=== PATIENT | male | born 1975 | race Caucasian/White ===

== ENCOUNTER 2023-03-26 17:40 | Emergency (ER) | payer MEDICAID ==
[~2023-03-26] VITALS: Ht 167.6 cm; Wt 92.5 kg
[2023-03-26 17:45] VITALS: TEMP 98.5
[2023-03-26] MEDS ORDERED: IV NS 0.9% 1,000 ML BAG IV ONE (18:00)
[2023-03-26] MEDS ORDERED: ONDANSETRON HCL/PF 4 MG/2 ML VIAL IVP ONE (18:00)
[2023-03-26] MEDS ORDERED: ONDANSETRON HCL/PF 4 MG/2 ML VIAL ONE (18:01)
[2023-03-26 18:10] LABS: BASOPHILS % (AUTO) 0.2 % (0.0-2.0); EOSINOPHILS % (AUTO) 0.1 % (0.0-6.0); HEMATOCRIT 43 % (39-51); HEMOGLOBIN 14.1 g/dL (13.5-17.5); LYMPHOCYTES # (AUTO) 1.4 K/uL (0.8-4.8); LYMPHOCYTES % (AUTO) 12.3 % (20.0-44.0); MEAN CORPUSCULAR HGB CONC 33 g/dl (31.0-36.0); MEAN CORPUSCULAR VOLUME 73 fL (80-96); MONOCYTES # (AUTO) 0.5 K/uL (0.1-1.30); MONOCYTES % (AUTO) 4.4 % (2.0-12.0); NEUTROPHILS # (AUTO) 9.4 K/uL (1.8-8.9); PLATELET COUNT (AUTO) 300 K/uL (150-450); RED BLOOD CELL COUNT(AUTO) 5.93 MIL/uL (4.5-6.0); WHITE BLOOD COUNT (AUTO) 11.3 K/uL (4.3-11.0)
--- NOTE | 2023-03-26 18:12 | NUR ---
Patient came in to the er c/o dizziness, nausea , 4 episodes of vomiting since 0 today. On room air, breathing evenly and unlabored. Connected to the monitor and pulse ox. Kept comfortable, will continue to monitor accordingly.
[2023-03-26 18:30] LABS: CALCIUM, SERUM 9.3 mg/dL (8.5-10.1); CREATININE 1.1 mg/dL (0.6-1.3); POTASSIUM 4.4 mmol/L (3.5-5.1)
[2023-03-26 18:38] LABS: BILIRUBIN,DIRECT 0.1 mg/dL (0.0-0.2); BILIRUBIN,TOTAL 0.4 mg/dL (0.2-1.0); TOTAL PROTEIN, SERUM 7.6 g/dL (6.4-8.2)
[2023-03-26] MEDS ORDERED: ONDA4TAB5 PO (19:16)
--- NOTE | 2023-03-26 19:27 | NUR ---
Pt AOx4, able to express his concerns. Patient states he is feeling better. Discussed discharge instructions and precautions needed. Friend at bedside, states they will be picking up medication. Discharge forms signed, pt verbalized agreement.
[2023-03-26 19:32] VITALS: BP 140/92
== END 2023-03-26 19:32 | disposition home or self-care (01) ==
LOC: ER 17:49
DX: K31.84 Gastroparesis (principal); R11.2 Nausea with vomiting, unspecified; Z79.899 Other long term (current) drug therapy
CPT/HCPCS: 99285; 96374; 76700; 96361; 93005; 85025; 80048; 83690; 80076; 36415; J2405; J7030

== ENCOUNTER 2023-05-01 12:08 | Emergency (ER) | payer MEDICAID ==
[~2023-05-01] VITALS: Ht 167.6 cm; Wt 77.1 kg
[~2023-05-01 12:08] MED LIST: ACID1TAB4 PO; AMOX-430 PO; BACI28.433 TP
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
--- NOTE | 2023-05-01 12:35 | NUR ---
DR TORREZ AT BEDSIDE FOR EVAL
--- NOTE | 2023-05-01 12:45 | NUR ---
EMT WOUND CLEANING AND DRESSING
[2023-05-01] MEDS ORDERED: SILV20CR13 TP (12:47)
[2023-05-01] MEDS ORDERED: SILVER SULFADIAZINE CREAM 25 GM TUBE ONE (12:51)
[2023-05-01] MEDS ORDERED: SILVER SULFADIAZINE CREAM 25 GM TUBE TP ONE (13:00)
--- NOTE | 2023-05-01 13:03 | NUR ---
Patient discharged to home in stable condition. Written and verbal after care instructions given. Patient verbalizes understanding of instruction.
[2023-05-01 13:04] VITALS: BP 120/96; TEMP 97.9; O2SAT 97
== END 2023-05-01 13:05 | disposition home or self-care (01) ==
LOC: ER 12:23
DX: S51.811D Laceration without foreign body of right forearm, subsequent encounter (principal); Z79.899 Other long term (current) drug therapy; W54.0XXD Bitten by dog, subsequent encounter
CPT/HCPCS: 99283; A6403

== ENCOUNTER 2023-05-20 09:43 | Emergency (ER) | payer MEDICAID ==
[~2023-05-20] VITALS: Ht 165.1 cm; Wt 76.7 kg
[~2023-05-20 09:43] MED LIST changes: +SILV20CR13 TP
[2023-05-20 10:18] VITALS: BP 139/86; TEMP 98.1; O2SAT 100
[2023-05-20] MEDS ORDERED: INDO-12 PO (10:35)
== END 2023-05-20 10:52 | disposition home or self-care (01) ==
LOC: ER 09:48
DX: M79.672 Pain in left foot (principal); M79.671 Pain in right foot; Z79.899 Other long term (current) drug therapy

== ENCOUNTER 2023-09-17 03:45 | Inpatient (IN) | payer MEDICAID ==
[~2023-09-17] VITALS: Ht 162.6 cm; Wt 92.5 kg
[~2023-09-17 03:45] MED LIST changes: +INDO-12 PO
[2023-09-17 04:17] LABS: BASOPHILS # (AUTO) 0.1 K/uL (0.0-0.2); EOSINOPHILS # (AUTO) 0.5 K/uL (0.0-0.7); EOSINOPHILS % (AUTO) 5.1 % (0.0-6.0); HEMATOCRIT 40 % (39-51); HEMOGLOBIN 12.7 g/dL (13.5-17.5); LYMPHOCYTES # (AUTO) 3.2 K/uL (0.8-4.8); MEAN CORPUSCULAR HEMOGLOBIN 24 PG (26.0-33.0); MEAN CORPUSCULAR HGB CONC 32 g/dl (31.0-36.0); MEAN CORPUSCULAR VOLUME 74 fL (80-96); MONOCYTES # (AUTO) 0.7 K/uL (0.1-1.30); MONOCYTES % (AUTO) 7.4 % (2.0-12.0); NEUTROPHILS # (AUTO) 4.5 K/uL (1.8-8.9); NEUTROPHILS % (AUTO) 50.5 % (43.0-81.0); PLATELET COUNT (AUTO) 276 K/uL (150-450); RED BLOOD CELL COUNT(AUTO) 5.34 MIL/uL (4.5-6.0); RED CELL DISTRIBUTION WIDTH 14.9 % (11.5-15.0); WHITE BLOOD COUNT (AUTO) 8.9 K/uL (4.3-11.0)
[2023-09-17] MEDS ORDERED: MORPHINE SULFATE INJ 2 MG/ML DISP.SYRIN IV ONE (04:30)
[2023-09-17] MEDS ORDERED: MORPHINE SULFATE INJ 4 MG/ML DISP.SYRIN ONE (04:33)
[2023-09-17 04:39] LABS: CALCIUM, SERUM 8.4 mg/dL (8.5-10.1); CARBON DIOXIDE 28 mmol/L (21-32); CHLORIDE 104 mmol/L (98-107); CREATININE 1.1 mg/dL (0.6-1.3); GLUCOSE 116 mg/dL (74-106); NT-PRO BNP 39 pg/mL (0-125); POTASSIUM 3.8 mmol/L (3.5-5.1); SODIUM SERUM 138 mmol/L (136-145); UREA NITROGEN, BLOOD 23 mg/dL (7-18)
[2023-09-17] MEDS ORDERED: FAMOTIDINE (20 MG) 20 MG TABLET ONE (06:28)
[2023-09-17] MEDS ORDERED: ASPIRIN 325 MG TABLET ONE (06:29)
[2023-09-17] MEDS ORDERED: FAMOTIDINE (20 MG) 20 MG TABLET PO ONE (06:30)
[2023-09-17] MEDS ORDERED: ASPIRIN 325 MG TABLET PO ONE (06:30)
[2023-09-17] MEDS ORDERED: ACETAMINOPHEN 325 MG TABLET PO PRN (08:30)
[2023-09-17] MEDS ORDERED: MORPHINE SULFATE INJ 2 MG/ML DISP.SYRIN IV PRN (08:30)
[2023-09-17] MEDS ORDERED: NITROGLYCERIN 0.4 MG/TAB BOTTLE SL PRN (08:30)
[2023-09-17] MEDS ORDERED: ONDANSETRON HCL/PF 4 MG/2 ML VIAL IVP PRN (08:30)
[2023-09-17] MEDS ORDERED: METOPROLOL TARTRATE 25 MG TABLET PO SCH (09:00)
[2023-09-17] MEDS ORDERED: ENOXAPARIN SODIUM 60 MG/0.6 ML DISP.SYRIN SQ ONE (10:59)
[2023-09-17] MEDS ORDERED: ENOXAPARIN SODIUM 30 MG/0.3 ML DISP.SYRIN ONE (10:59)
[2023-09-17] MEDS: ENOXAPARIN SODIUM 100 MG/ML DISP.SYRIN SQ SCH ×2 (11:00→22:30)
[2023-09-17 21:35] VITALS: BP 131/88; TEMP 98.7; O2SAT 98
[2023-09-17 23:46] VITALS: BP 131/80; TEMP 98.7; O2SAT 98
[2023-09-18 00:15] VITALS: BP 116/68; TEMP 98.6; O2SAT 97
[2023-09-18 05:00] VITALS: BP 137/85; TEMP 98.3; O2SAT 99
[2023-09-18 08:00] VITALS: BP 132/94; TEMP 98.3; O2SAT 98
[2023-09-18] MEDS: METOPROLOL TARTRATE 25 MG TABLET PO SCH ×4 (08:16→17:00)
[2023-09-18] MEDS: ASPIRIN 81 MG TAB.CHEW PO SCH (08:16)
[2023-09-18 08:41] LABS: BASOPHILS # (AUTO) 0.1 K/uL (0.0-0.2); BASOPHILS % (AUTO) 1.2 % (0.0-2.0); EOSINOPHILS # (AUTO) 0.3 K/uL (0.0-0.7); HEMATOCRIT 40 % (39-51); HEMOGLOBIN 13.1 g/dL (13.5-17.5); LYMPHOCYTES # (AUTO) 2.5 K/uL (0.8-4.8); LYMPHOCYTES % (AUTO) 39.4 % (20.0-44.0); MEAN CORPUSCULAR HEMOGLOBIN 24 PG (26.0-33.0); MEAN CORPUSCULAR HGB CONC 32 g/dl (31.0-36.0); MEAN CORPUSCULAR VOLUME 74 fL (80-96); MONOCYTES # (AUTO) 0.5 K/uL (0.1-1.30); MONOCYTES % (AUTO) 7.6 % (2.0-12.0); NEUTROPHILS # (AUTO) 3.1 K/uL (1.8-8.9); NEUTROPHILS % (AUTO) 47.8 % (43.0-81.0); PLATELET COUNT (AUTO) 273 K/uL (150-450); RED BLOOD CELL COUNT(AUTO) 5.46 MIL/uL (4.5-6.0); RED CELL DISTRIBUTION WIDTH 14.8 % (11.5-15.0); WHITE BLOOD COUNT (AUTO) 6.4 K/uL (4.3-11.0)
[2023-09-18 08:51] LABS: CALCIUM, SERUM 8.5 mg/dL (8.5-10.1); MAGNESIUM 1.9 mg/dL (1.8-2.4); PHOSPHORUS 3.1 mg/dL (2.5-4.9)
[2023-09-18] MEDS: ENOXAPARIN SODIUM 100 MG/ML DISP.SYRIN SQ SCH ×2 (10:25→23:25)
[2023-09-18 12:00] VITALS: BP 133/73; TEMP 98.8; O2SAT 99
[2023-09-18] MEDS ORDERED: IOHEXOL-350 100 ML VIAL IV ONE ×2 (15:43→15:56)
[2023-09-18] MEDS ORDERED: NITROGLYCERIN 0.4 MG/TAB BOTTLE ONE (15:44)
[2023-09-18] MEDS ORDERED: IV NS 0.9% 250 ML IV ONE (15:45)
[2023-09-18] MEDS ORDERED: CT SWABBABLE VALVE TRANS SET 1 EA INFUS.SET MC ONE (15:45)
[2023-09-18] MEDS ORDERED: METOPROLOL TARTRATE INJ 5 MG/5 ML AMPUL ONE ×3 (15:48→16:04)
[2023-09-18 16:00] VITALS: BP 138/85; TEMP 98.4; O2SAT 98
[2023-09-18 20:40] VITALS: BP 112/58; TEMP 98.4; O2SAT 100
[2023-09-19 00:41] VITALS: BP 117/60; TEMP 98.2; O2SAT 100
[2023-09-19 04:19] VITALS: BP 102/71; TEMP 99; O2SAT 98
[2023-09-19] MEDS: ASPIRIN 81 MG TAB.CHEW PO SCH (08:28)
[2023-09-19 08:29] VITALS: BP 107/64
[2023-09-19] MEDS: METOPROLOL TARTRATE 25 MG TABLET PO SCH (08:29)
[2023-09-19] MEDS ORDERED: METO25TA20 PO (10:43)
[2023-09-19] MEDS ORDERED: ASPI-1169 PO (10:43)
== END 2023-09-19 13:52 | disposition home or self-care (01) | DRG 190 ==
LOC: ER 03:46 → TRANSITION 10:29 → TELE 21:14
PROVIDERS: ADMIT Internal Medicine; ATTEND Internal Medicine
DX: I21.4 Non-ST elevation (NSTEMI) myocardial infarction (principal); E83.51 Hypocalcemia; Z87.891 Personal history of nicotine dependence; R73.9 Hyperglycemia, unspecified
CPT/HCPCS: 36415; 71045-TC; 75574; 80048-TC; 83735-TC; 83880; 84100-TC; 84484-TC; 85025-TC; 93307-TC; G0378; J1650; J2270; J2405; J3490; J7050; Q9967